=== PATIENT | male | born 1945 | race Caucasian/White ===

== ENCOUNTER 2020-08-20 20:09 | Inpatient (IN) | payer MEDICARE ==
[2020-08-20] MEDS ORDERED: Propofol 1,000 MG/100 ML VIAL IV ONE (20:28)
[2020-08-20] MEDS ORDERED: Fentanyl 100 MCG/2 ML VIAL ONE (20:36)
[2020-08-20] MEDS ORDERED: Acetaminophen 650 MG Suppository ONE (20:51)
[2020-08-20 20:59] LABS: Actual Bicarbonate (HCO3a) 21.4 mEq/L (22-28); Analyzer IN Cardio ER; Base Excess (BEa) -5.3 mEq/L (-2.0 to +3.0); CO2 Tension 46.8 mmHg (35.0-45.0); Calcium, Ionized (arterial) 1.12 mmol/L (1.12-1.30); Carboxyhemoglobin (COHb) 0.3 gm% (0.0-3.0); Hemoglobin (Hb) 12.8 g/dL (14.0-18.0); O2 Tension (PaO2), arterial 297.3 mmHg (> 70.0); Potassium - ABG Lab 4.17 mmol/L (3.70-5.30); pH, Arterial 7.28 (7.35-7.45)
[2020-08-20 21:03] LABS: Puncture Site RBA
[2020-08-20 22:38] LABS: Color Of CSF Supernatant COLORLESS (Colorless); Unspun CSF Color COLORLESS (Colorless)
[2020-08-20 22:39] LABS: Tube # 2
[2020-08-20] MEDS ORDERED: Ventilator Sedation Protocol 1 EACH FS SCH (22:45)
[2020-08-20] MEDS ORDERED: Ampicillin 125 MG/5 ML VIAL SLOW IVP SCH (22:45)
[2020-08-20 22:52] LABS: CSF, Glucose 65 mg/dl (40-70); CSF, Protein 96 mg/dL (15-40)
[2020-08-20] MEDS ORDERED: Propofol BOLUS 1,000 MG/100 ML VIAL IV PRN (23:00)
[2020-08-20] MEDS ORDERED: Fentanyl BOLUS 250 ML IVPB PRN (23:00)
[2020-08-20] MEDS ORDERED: DISCONTINUE PREVIOUS NARCOTIC PAIN MEDICATIONS AND BENZODIAZEPINES FS SCH (23:00)
[2020-08-20 23:08] LABS: CSF Source CSF; Clarity Clear (Clear); Tube # 4
[2020-08-20 23:10] LABS: Cell Count Non Hematic 31 %; Eosinophils 1 %; Lymphocytes 67 %; Segmented Neutrophils 1 %
[2020-08-20 23:11] LABS: CSF Source CSF; Clarity Hazy (Clear); Tube # 1
[2020-08-21] MEDS ORDERED: cefTRIAXone\\ROCEPHIN 2 GM in Sodium Chloride 0.9% 100 ML IVPB SCH (02:00)
[2020-08-21] MEDS: Ampicillin 2 GM in Sodium Chloride 0.9% 100 ML IVPB SCH ×7 (02:19→17:18)
[2020-08-21] MEDS ORDERED: Ampicillin 2 GM VIAL ONE ×2 (02:31→05:44)
[2020-08-21] MEDS ORDERED: cefTRIAXone\\ROCEPHIN 2 GM VIAL ONE (02:32)
[2020-08-21] MEDS ORDERED: Dextrose 50% Abboject 50 ML SYRINGE ONE ×2 (02:33→17:56)
[2020-08-21] MEDS ORDERED: Dextrose 5% in Water 1,000 ML IV SCH (04:00)
[2020-08-21] MEDS ORDERED: Propofol 1,000 MG/100 ML VIAL IV ONE ×2 (04:23→10:41)
[2020-08-21 04:54] LABS: Anion Gap 16 mmol/L (10-20); BUN (Urea Nitrogen) 15 mg/dL (8.4-25.7); Calc. Creatinine Clearance 82 mL/min (70-130); Calcium 7.9 mg/dL (7.8-10.44); Carbon Dioxide 17 mmol/L (23-31); Chloride 108 mmol/L (98-107); Glucose 83 mg/dL (83-110); Potassium 3.8 mmol/L (3.5-5.1); Sodium 137 mmol/L (136-145)
[2020-08-21 05:05] LABS: Band 2 % (5-11); Hemoglobin 12.1 g/dL (14.0-18.0); Hypochromia SLIGHT = 6-15 cells (100X) (0-5/hpf); Lymphocytes 21 % (21-51); MDiff Complete? YES; Mean Corpuscular HGB CONC 33.3 g/dL (32.0-36.0); Mean Corpuscular Hemoglobin 31.4 pg (27.0-31.0); Mean Corpuscular Volume 94.3 fL (78.0-98.0); Mean Platelet Volume 7.3 fL (7.4-10.4); Monocytes 19 % (0-10); Neutrophil 58 % (42-75); Platelet Count 162 thou/uL (130-400); Platelet Morphology Comment Appears Adequate; RBC Distribution Width 12.5 % (11.5-14.5); Red Blood Cell (RBC) Count 3.86 mill/uL (4.70-6.10); White Blood Cell (WBC) Count 11.7 thou/uL (4.8-10.8)
[2020-08-21] MEDS: Dextrose 5 % And 0.9 % NaCl 1,000 ML IV SCH ×3 (05:23→14:25)
[2020-08-21 08:05] LABS: Actual Bicarbonate (HCO3a) 20.1 mEq/L (22-28); Analyzer IN Cardio ER; Base Excess (BEa) -1.8 mEq/L (-2.0 to +3.0); CO2 Tension 26.4 mmHg (35.0-45.0); Calcium, Ionized (arterial) 1.11 mmol/L (1.12-1.30); Carboxyhemoglobin (COHb) 0.3 gm% (0.0-3.0); Hemoglobin (Hb) 12.3 g/dL (14.0-18.0); O2 Tension (PaO2), arterial 87.6 mmHg (> 70.0); Potassium - ABG Lab 3.34 mmol/L (3.70-5.30)
[2020-08-21] MEDS ORDERED: Lorazepam 2 MG/ML VIAL ONE (08:08)
[2020-08-21] MEDS: Lorazepam 2 MG/ML VIAL SLOW IVP PRN ×2 (08:11→12:55)
[2020-08-21 08:12] LABS: Puncture Site RRA
[2020-08-21] MEDS: Enoxaparin Sodium 40 MG/0.4 ML SYRINGE SC SCH (09:41)
[2020-08-21] MEDS ORDERED: levETIRAcetam in NS 500 MG in Premix Bag 1 BAG IVPB SCH (10:45)
[2020-08-21] MEDS: Propofol 1,000 MG/100 ML VIAL IV PRN ×3 (14:06→23:27)
[2020-08-21] MEDS ORDERED: VANCOMYCIN 2 GRAM/400 ML BAG 2 GM in Premix Bag 1 BAG IVPB SCH (15:00)
[2020-08-21 15:59] LABS: SARS-CoV-2 PCR by NAA Not Detected (NotDetected)
[2020-08-21] MEDS ORDERED: traZODone HCl 50 MG TAB ONE (17:56)
[2020-08-21] MEDS: Acetaminophen 650 MG/20.3 ML UDCUP PER TUBE PRN (17:58)
[2020-08-21] MEDS ORDERED: Dextrose 5% in Water 1,000 ML IV PRN (19:30)
[2020-08-21] MEDS ORDERED: Dextrose 50% Abboject 50 ML SYRINGE IVP PRN (19:30)
[2020-08-21] MEDS ORDERED: Fentanyl CADD 0 ML ONE (19:33)
[2020-08-21] MEDS: Sodium Chloride 154 MEQ in Dextrose 10% in Water 1,000 ML IV SCH (20:04)
[2020-08-21] MEDS: levETIRAcetam in NS 500 MG in Premix Bag 1 BAG IVPB SCH (21:12)
[2020-08-21] MEDS ORDERED: Fentanyl CADD 100 ML ONE (23:23)
[2020-08-21] MEDS: Fentanyl CADD 100 ML IV SCH (23:27)
[2020-08-21] MEDS: Piperacillin/Tazobactam 3.375 GM in Sodium Chloride 0.9% 100 ML IVPB SCH (23:38)
[2020-08-22] MEDS: Propofol 1,000 MG/100 ML VIAL IV PRN ×3 (04:16→21:35)
[2020-08-22 04:54] LABS: #Eosinphils 0.3 thou/uL (0.0-0.7); #Lymphocytes 1.3 thou/uL (1.20-3.40); #Monocytes 0.8 thou/uL (0.11-0.59); #Neutrophils 6.6 thou/uL (1.40-6.50); %Basophils 0.5 % (0.0-1.0); %Eosinophils 3.3 % (0.0-10.0); %Lymphocytes 14.5 % (21.0-51.0); %Monocytes 8.9 % (0.0-10.0); %Neutrophils 72.8 % (42.0-75.0); Hemoglobin 12.1 g/dL (14.0-18.0); Mean Corpuscular HGB CONC 33.7 g/dL (32.0-36.0); Mean Corpuscular Hemoglobin 31.8 pg (27.0-31.0); Mean Corpuscular Volume 94.3 fL (78.0-98.0); Mean Platelet Volume 7.9 fL (7.4-10.4); Platelet Count 126 thou/uL (130-400); RBC Distribution Width 12.5 % (11.5-14.5); Red Blood Cell (RBC) Count 3.82 mill/uL (4.70-6.10)
[2020-08-22 05:17] LABS: Anion Gap 10 mmol/L (10-20); BUN (Urea Nitrogen) 12 mg/dL (8.4-25.7); Calc. Creatinine Clearance 69 mL/min (70-130); Calcium 7.6 mg/dL (7.8-10.44); Carbon Dioxide 23 mmol/L (23-31); Chloride 108 mmol/L (98-107); Glucose 151 mg/dL (83-110); Potassium 3.7 mmol/L (3.5-5.1); Sodium 137 mmol/L (136-145)
[2020-08-22] MEDS: Piperacillin/Tazobactam 3.375 GM in Sodium Chloride 0.9% 100 ML IVPB SCH ×3 (05:38→20:01)
[2020-08-22] MEDS: Sodium Chloride 154 MEQ in Dextrose 10% in Water 1,000 ML IV SCH ×2 (06:16→16:08)
[2020-08-22] MEDS: levETIRAcetam in NS 500 MG in Premix Bag 1 BAG IVPB SCH ×2 (08:22→20:35)
[2020-08-22] MEDS: Pantoprazole 40 MG VIAL IVP SCH (08:23)
[2020-08-22] MEDS: Enoxaparin Sodium 40 MG/0.4 ML SYRINGE SC SCH (08:23)
[2020-08-22 13:26] LABS: SARS-CoV-2 PCR by NAA Not Detected (NotDetected)
[2020-08-22] MEDS: Lorazepam 2 MG/ML VIAL SLOW IVP PRN (15:31)
[2020-08-22] MEDS ORDERED: Fentanyl CADD 100 ML ONE (15:40)
[2020-08-22] MEDS: Fentanyl CADD 100 ML IV SCH (15:43)
[2020-08-22] MEDS ORDERED: Amiodarone 150 MG, Admixture Fee 1 EACH in Dextrose 5% in Water 100 ML IVPB SCH (16:00)
[2020-08-22] MEDS ORDERED: Pancrelipase DR 12,000 1 CAP FS PRN (16:00)
[2020-08-22] MEDS ORDERED: Sodium Bicarbonate Tab 325 MG TAB PER TUBE PRN (16:00)
[2020-08-22] MEDS: Amiodarone 450 MG, Admixture Fee 1 EACH in Dextrose 5% in Water 250 ML IVPB SCH (16:08)
[2020-08-22] MEDS: Acetaminophen 650 MG/20.3 ML UDCUP PER TUBE PRN (18:20)
[2020-08-22 20:29] LABS: SARS-CoV-2 IgG Ab Non-Reactive (NonReactive); SARS-CoV-2 IgG Index 0.02 S/CO (< 1.40)
[2020-08-23] MEDS: Amiodarone 450 MG, Admixture Fee 1 EACH in Dextrose 5% in Water 250 ML IVPB SCH ×2 (00:05→21:40)
[2020-08-23] MEDS: Piperacillin/Tazobactam 3.375 GM in Sodium Chloride 0.9% 100 ML IVPB SCH ×5 (00:27→23:29)
[2020-08-23] MEDS: Propofol 1,000 MG/100 ML VIAL IV PRN ×3 (02:25→18:10)
[2020-08-23 03:51] LABS: #Eosinphils 0.2 thou/uL (0.0-0.7); #Monocytes 0.4 thou/uL (0.11-0.59); #Neutrophils 5.4 thou/uL (1.40-6.50); %Basophils 0.2 % (0.0-1.0); %Eosinophils 3.5 % (0.0-10.0); %Lymphocytes 13.7 % (21.0-51.0); %Neutrophils 76.6 % (42.0-75.0); Mean Corpuscular HGB CONC 34.2 g/dL (32.0-36.0); Mean Corpuscular Hemoglobin 32.3 pg (27.0-31.0); Mean Corpuscular Volume 94.4 fL (78.0-98.0); Mean Platelet Volume 7.8 fL (7.4-10.4); Platelet Count 110 thou/uL (130-400); RBC Distribution Width 12.5 % (11.5-14.5); Red Blood Cell (RBC) Count 3.41 mill/uL (4.70-6.10)
[2020-08-23 04:09] LABS: Anion Gap 9 mmol/L (10-20); BUN (Urea Nitrogen) 9 mg/dL (8.4-25.7); Calc. Creatinine Clearance 79 mL/min (70-130); Calcium 7.3 mg/dL (7.8-10.44); Carbon Dioxide 20 mmol/L (23-31); Chloride 107 mmol/L (98-107); Glucose 157 mg/dL (83-110); Potassium 3.1 mmol/L (3.5-5.1); Sodium 133 mmol/L (136-145)
[2020-08-23] MEDS: Sodium Chloride 154 MEQ in Dextrose 10% in Water 1,000 ML IV SCH (04:47)
[2020-08-23] MEDS ORDERED: Potassium Chloride 40 MEQ in Sodium Chloride 0.9% 250 ML 250 ML IVPB SCH (06:45)
[2020-08-23] MEDS: Enoxaparin Sodium 40 MG/0.4 ML SYRINGE SC SCH (08:03)
[2020-08-23] MEDS: Pantoprazole 40 MG VIAL IVP SCH (08:04)
[2020-08-23] MEDS ORDERED: Fentanyl CADD 100 ML ONE (08:52)
[2020-08-23] MEDS: Lorazepam 2 MG/ML VIAL SLOW IVP PRN (10:23)
[2020-08-23] MEDS: levETIRAcetam in NS 500 MG in Premix Bag 1 BAG IVPB SCH ×2 (12:23→20:48)
[2020-08-23] MEDS: Dextrose 5 % And 0.9 % NaCl 1,000 ML IV SCH (17:49)
[2020-08-23] MEDS: Multivitamins, Adult 10 ML, Folic Acid 1 MG, Thiamine HCl 100 MG in Dextrose 5 %-0.45 %... IV SCH (18:36)
[2020-08-24] MEDS ORDERED: Fentanyl CADD 100 ML ONE ×3 (00:48→17:32)
[2020-08-24] MEDS: Fentanyl CADD 100 ML IV SCH (00:53)
[2020-08-24] MEDS: Acetaminophen 650 MG/20.3 ML UDCUP PER TUBE PRN ×2 (01:39→09:30)
[2020-08-24] MEDS: Piperacillin/Tazobactam 3.375 GM in Sodium Chloride 0.9% 100 ML IVPB SCH ×4 (06:09→23:35)
[2020-08-24] MEDS: Propofol 1,000 MG/100 ML VIAL IV PRN ×3 (06:09→23:55)
[2020-08-24] MEDS: Dextrose 5 % And 0.9 % NaCl 1,000 ML IV SCH (06:10)
[2020-08-24 07:20] LABS: Actual Bicarbonate (HCO3a) 21.4 mEq/L (22-28); Base Excess (BEa) -3.7 mEq/L (-2.0 to +3.0); CO2 Tension 38.8 mmHg (35.0-45.0); Calcium, Ionized (arterial) 1.16 mmol/L (1.12-1.30); Carboxyhemoglobin (COHb) 0.3 gm% (0.0-3.0); Hemoglobin (Hb) 11.5 g/dL (14.0-18.0); O2 Tension (PaO2), arterial 72.1 mmHg (> 70.0); Potassium - ABG Lab 3.69 mmol/L (3.70-5.30); pH, Arterial 7.36 (7.35-7.45)
[2020-08-24 07:24] LABS: #Eosinphils 0.2 thou/uL (0.0-0.7); #Lymphocytes 1.1 thou/uL (1.20-3.40); #Monocytes 0.9 thou/uL (0.11-0.59); %Basophils 0.5 % (0.0-1.0); %Lymphocytes 12.8 % (21.0-51.0); %Monocytes 10.8 % (0.0-10.0); %Neutrophils 72.9 % (42.0-75.0); Hemoglobin 11.5 g/dL (14.0-18.0); Mean Corpuscular HGB CONC 33.6 g/dL (32.0-36.0); Mean Corpuscular Hemoglobin 31.6 pg (27.0-31.0); Mean Corpuscular Volume 93.9 fL (78.0-98.0); Mean Platelet Volume 7.7 fL (7.4-10.4); Platelet Count 139 thou/uL (130-400); RBC Distribution Width 12.5 % (11.5-14.5); Red Blood Cell (RBC) Count 3.63 mill/uL (4.70-6.10); White Blood Cell (WBC) Count 8.2 thou/uL (4.8-10.8)
[2020-08-24 07:32] LABS: Puncture Site RRA
[2020-08-24 08:01] LABS: Anion Gap 14 mmol/L (10-20); BUN (Urea Nitrogen) 11 mg/dL (8.4-25.7); Calc. Creatinine Clearance 88 mL/min (70-130); Calcium 8.3 mg/dL (7.8-10.44); Carbon Dioxide 17 mmol/L (23-31); Chloride 110 mmol/L (98-107); Glucose 147 mg/dL (83-110); Potassium 5.2 mmol/L (3.5-5.1); Sodium 136 mmol/L (136-145)
[2020-08-24] MEDS: Pantoprazole 40 MG GRANULES PACKET PER TUBE SCH (09:30)
[2020-08-24] MEDS: levETIRAcetam in NS 500 MG in Premix Bag 1 BAG IVPB SCH ×2 (09:30→20:49)
[2020-08-24] MEDS: Enoxaparin Sodium 40 MG/0.4 ML SYRINGE SC SCH (09:30)
[2020-08-24] MEDS ORDERED: PARoxetine 20 MG TAB ONE (14:37)
[2020-08-24] MEDS: Multivitamins, Adult 10 ML, Folic Acid 1 MG, Thiamine HCl 100 MG in Dextrose 5 %-0.45 %... IV SCH (17:27)
[2020-08-24] MEDS: Lorazepam 2 MG/ML VIAL SLOW IVP PRN (17:53)
[2020-08-24] MEDS ORDERED: Piperacillin/Tazobactam 3.375 GM VIAL ONE (23:40)
[2020-08-25] MEDS: Amiodarone 450 MG, Admixture Fee 1 EACH in Dextrose 5% in Water 250 ML IVPB SCH ×2 (04:17→19:33)
[2020-08-25] MEDS: Furosemide 40 MG/4 ML VIAL SLOW IVP SCH ×2 (05:03→14:15)
[2020-08-25] MEDS: Piperacillin/Tazobactam 3.375 GM in Sodium Chloride 0.9% 100 ML IVPB SCH ×4 (05:03→23:28)
[2020-08-25 05:10] LABS: #Basophils 0.1 thou/uL (0.0-0.2); #Eosinphils 0.2 thou/uL (0.0-0.7); #Lymphocytes 0.9 thou/uL (1.20-3.40); #Monocytes 0.5 thou/uL (0.11-0.59); #Neutrophils 3.9 thou/uL (1.40-6.50); %Basophils 1.3 % (0.0-1.0); %Eosinophils 4.1 % (0.0-10.0); %Lymphocytes 15.5 % (21.0-51.0); %Monocytes 8.2 % (0.0-10.0); %Neutrophils 70.9 % (42.0-75.0); Hemoglobin 10.6 g/dL (14.0-18.0); Mean Corpuscular HGB CONC 33.4 g/dL (32.0-36.0); Mean Corpuscular Hemoglobin 31.6 pg (27.0-31.0); Mean Corpuscular Volume 94.5 fL (78.0-98.0); Mean Platelet Volume 7.7 fL (7.4-10.4); Platelet Count 158 thou/uL (130-400); RBC Distribution Width 12.6 % (11.5-14.5); Red Blood Cell (RBC) Count 3.37 mill/uL (4.70-6.10); White Blood Cell (WBC) Count 5.6 thou/uL (4.8-10.8)
[2020-08-25 05:31] LABS: Anion Gap 9 mmol/L (10-20); BUN (Urea Nitrogen) 8 mg/dL (8.4-25.7); Calc. Creatinine Clearance 100 mL/min (70-130); Calcium 8.1 mg/dL (7.8-10.44); Carbon Dioxide 22 mmol/L (23-31); Chloride 110 mmol/L (98-107); Glucose 123 mg/dL (83-110); Potassium 3.4 mmol/L (3.5-5.1); Sodium 138 mmol/L (136-145)
[2020-08-25] MEDS ORDERED: Electrolyte Replacement Protocol 1 EACH FS PRN (07:59)
[2020-08-25 08:01] LABS: Actual Bicarbonate (HCO3a) 24.9 mEq/L (22-28); Base Excess (BEa) 1.3 mEq/L (-2.0 to +3.0); CO2 Tension 36.1 mmHg (35.0-45.0); Carboxyhemoglobin (COHb) 0.2 gm% (0.0-3.0); Hemoglobin (Hb) 11.5 g/dL (14.0-18.0); O2 Tension (PaO2), arterial 64.3 mmHg (> 70.0); pH, Arterial 7.46 (7.35-7.45)
[2020-08-25] MEDS ORDERED: Potassium Chloride 40 MEQ in Sodium Chloride 0.9% 250 ML 250 ML IVPB SCH (08:15)
[2020-08-25 08:31] LABS: Puncture Site RRA
[2020-08-25 08:32] LABS: ALV-art Gradient 104.475 mmHg (0-20)
[2020-08-25] MEDS: Pantoprazole 40 MG GRANULES PACKET PER TUBE SCH (08:46)
[2020-08-25] MEDS: Enoxaparin Sodium 40 MG/0.4 ML SYRINGE SC SCH (08:46)
[2020-08-25] MEDS: Lorazepam 2 MG/ML VIAL SLOW IVP PRN ×3 (08:58→22:52)
[2020-08-25] MEDS: Propofol 1,000 MG/100 ML VIAL IV PRN ×2 (09:05→20:34)
[2020-08-25] MEDS ORDERED: Fentanyl CADD 100 ML ONE (10:53)
[2020-08-25] MEDS: levETIRAcetam in NS 500 MG in Premix Bag 1 BAG IVPB SCH ×2 (11:45→20:34)
[2020-08-25 15:44] LABS: Potassium 3.8 mmol/L (3.5-5.1)
[2020-08-25] MEDS: Multivitamins, Adult 10 ML, Folic Acid 1 MG, Thiamine HCl 100 MG in Dextrose 5 %-0.45 %... IV SCH (17:13)
[2020-08-25] MEDS: Potassium Bicarbonate/Cit Ac 20 MEQ TAB PO SCH (20:35)
[2020-08-26 04:21] LABS: #Basophils 0.1 thou/uL (0.0-0.2); #Eosinphils 0.2 thou/uL (0.0-0.7); #Lymphocytes 1.2 thou/uL (1.20-3.40); #Monocytes 0.7 thou/uL (0.11-0.59); #Neutrophils 5.2 thou/uL (1.40-6.50); %Basophils 1.1 % (0.0-1.0); %Lymphocytes 15.7 % (21.0-51.0); %Monocytes 9.6 % (0.0-10.0); %Neutrophils 70.7 % (42.0-75.0); Hemoglobin 10.3 g/dL (14.0-18.0); Mean Corpuscular HGB CONC 34.5 g/dL (32.0-36.0); Mean Corpuscular Hemoglobin 32.3 pg (27.0-31.0); Mean Corpuscular Volume 93.6 fL (78.0-98.0); Mean Platelet Volume 7.2 fL (7.4-10.4); Platelet Count 170 thou/uL (130-400); RBC Distribution Width 12.4 % (11.5-14.5); White Blood Cell (WBC) Count 7.4 thou/uL (4.8-10.8)
[2020-08-26 04:38] LABS: Anion Gap 12 mmol/L (10-20); BUN (Urea Nitrogen) 11 mg/dL (8.4-25.7); Calc. Creatinine Clearance 94 mL/min (70-130); Calcium 8.3 mg/dL (7.8-10.44); Carbon Dioxide 25 mmol/L (23-31); Chloride 103 mmol/L (98-107); Glucose 130 mg/dL (83-110); Potassium 3.3 mmol/L (3.5-5.1); Sodium 137 mmol/L (136-145)
[2020-08-26] MEDS: Furosemide 40 MG/4 ML VIAL SLOW IVP SCH ×2 (05:20→13:12)
[2020-08-26] MEDS: Piperacillin/Tazobactam 3.375 GM in Sodium Chloride 0.9% 100 ML IVPB SCH ×3 (05:20→17:02)
[2020-08-26] MEDS ORDERED: Potassium Chloride 40 MEQ in Sodium Chloride 0.9% 250 ML 250 ML IVPB SCH (06:00)
[2020-08-26 07:40] LABS: Actual Bicarbonate (HCO3a) 28.6 mEq/L (22-28); CO2 Tension 38.6 mmHg (35.0-45.0); Calcium, Ionized (arterial) 1.17 mmol/L (1.12-1.30); Carboxyhemoglobin (COHb) 0.4 gm% (0.0-3.0); Hemoglobin (Hb) 11.9 g/dL (14.0-18.0); pH, Arterial 7.49 (7.35-7.45)
[2020-08-26] MEDS ORDERED: Rocuronium Bromide 50 MG/5 ML VIAL IVP SCH (08:00)
[2020-08-26 08:02] LABS: Puncture Site RRA
[2020-08-26] MEDS ORDERED: Fentanyl CADD 100 ML ONE ×2 (08:31→23:57)
[2020-08-26] MEDS: levETIRAcetam in NS 500 MG in Premix Bag 1 BAG IVPB SCH ×2 (08:58→20:08)
[2020-08-26] MEDS: Enoxaparin Sodium 40 MG/0.4 ML SYRINGE SC SCH (08:58)
[2020-08-26] MEDS: Potassium Bicarbonate/Cit Ac 20 MEQ TAB PO SCH ×2 (08:58→20:09)
[2020-08-26] MEDS: Pantoprazole 40 MG GRANULES PACKET PER TUBE SCH (08:58)
[2020-08-26] MEDS: Propofol 1,000 MG/100 ML VIAL IV PRN ×2 (11:03→21:47)
[2020-08-26] MEDS: Lorazepam 2 MG/ML VIAL SLOW IVP PRN (11:04)
[2020-08-26] MEDS ORDERED: Magnevist 469MG/ML 20 ML VIAL ONE (14:47)
[2020-08-26] MEDS ORDERED: Amlodipine 10 MG TAB PO SCH (16:15)
[2020-08-26 16:57] LABS: Anion Gap 13 mmol/L (10-20); BUN (Urea Nitrogen) 14 mg/dL (8.4-25.7); Calc. Creatinine Clearance 79 mL/min (70-130); Calcium 9.3 mg/dL (7.8-10.44); Carbon Dioxide 31 mmol/L (23-31); Chloride 98 mmol/L (98-107); Glucose 112 mg/dL (83-110); Potassium 3.8 mmol/L (3.5-5.1); Sodium 138 mmol/L (136-145)
[2020-08-27] MEDS: Piperacillin/Tazobactam 3.375 GM in Sodium Chloride 0.9% 100 ML IVPB SCH ×5 (00:12→23:14)
[2020-08-27] MEDS: Propofol 1,000 MG/100 ML VIAL IV PRN ×3 (04:02→21:02)
[2020-08-27 04:38] LABS: #Basophils 0.1 thou/uL (0.0-0.2); #Eosinphils 0.2 thou/uL (0.0-0.7); #Lymphocytes 1.6 thou/uL (1.20-3.40); #Monocytes 0.8 thou/uL (0.11-0.59); #Neutrophils 4.8 thou/uL (1.40-6.50); %Basophils 1.1 % (0.0-1.0); %Eosinophils 3.1 % (0.0-10.0); %Lymphocytes 21.1 % (21.0-51.0); %Monocytes 10.1 % (0.0-10.0); %Neutrophils 64.5 % (42.0-75.0); Hemoglobin 10.9 g/dL (14.0-18.0); Mean Corpuscular HGB CONC 33.5 g/dL (32.0-36.0); Mean Corpuscular Hemoglobin 31.2 pg (27.0-31.0); Mean Corpuscular Volume 93.2 fL (78.0-98.0); Mean Platelet Volume 7.3 fL (7.4-10.4); Platelet Count 239 thou/uL (130-400); RBC Distribution Width 12.4 % (11.5-14.5); White Blood Cell (WBC) Count 7.4 thou/uL (4.8-10.8)
[2020-08-27 05:07] LABS: Anion Gap 10 mmol/L (10-20); BUN (Urea Nitrogen) 17 mg/dL (8.4-25.7); Calc. Creatinine Clearance 85 mL/min (70-130); Carbon Dioxide 33 mmol/L (23-31); Chloride 98 mmol/L (98-107); Glucose 110 mg/dL (83-110); Potassium 3.4 mmol/L (3.5-5.1); Sodium 138 mmol/L (136-145)
[2020-08-27] MEDS: Amiodarone 450 MG, Admixture Fee 1 EACH in Dextrose 5% in Water 250 ML IVPB SCH ×2 (05:08→19:58)
[2020-08-27 05:26] LABS: Free T4 (Free Thyroxine) 0.86 ng/dL (0.70-1.48); Thyroid Stimulating Hormone 5.7278 uIU/mL (0.35-4.94)
[2020-08-27] MEDS: Furosemide 40 MG/4 ML VIAL SLOW IVP SCH (05:28)
[2020-08-27] MEDS ORDERED: Potassium Chloride 40 MEQ in Sodium Chloride 0.9% 250 ML 250 ML IVPB SCH (05:45)
[2020-08-27 08:43] LABS: Actual Bicarbonate (HCO3a) 32.6 mEq/L (22-28); Base Excess (BEa) 9.1 mEq/L (-2.0 to +3.0); CO2 Tension 40.3 mmHg (35.0-45.0); Calcium, Ionized (arterial) 1.17 mmol/L (1.12-1.30); Hemoglobin (Hb) 12.7 g/dL (14.0-18.0); O2 Tension (PaO2), arterial 82.1 mmHg (> 70.0); Potassium - ABG Lab 3.69 mmol/L (3.70-5.30); pH, Arterial 7.53 (7.35-7.45)
[2020-08-27 08:44] LABS: Puncture Site LRA
[2020-08-27 08:45] LABS: ALV-art Gradient 81.425 mmHg (0-20)
[2020-08-27] MEDS ORDERED: Furosemide 40 MG TAB PO SCH (09:00)
[2020-08-27] MEDS: Enoxaparin Sodium 40 MG/0.4 ML SYRINGE SC SCH (09:14)
[2020-08-27] MEDS: Amlodipine 10 MG TAB PO SCH (09:15)
[2020-08-27] MEDS: Potassium Bicarbonate/Cit Ac 20 MEQ TAB PO SCH ×2 (09:15→20:05)
[2020-08-27] MEDS: Pantoprazole 40 MG GRANULES PACKET PER TUBE SCH (09:15)
[2020-08-27] MEDS: levETIRAcetam in NS 500 MG in Premix Bag 1 BAG IVPB SCH ×2 (09:16→21:03)
[2020-08-27] MEDS: Lorazepam 2 MG/ML VIAL SLOW IVP PRN ×4 (09:16→22:02)
[2020-08-27] MEDS: Morphine 2 MG/ML VIAL SLOW IVP PRN ×3 (11:23→20:04)
[2020-08-27 15:37] LABS: Potassium 4.6 mmol/L (3.5-5.1)
[2020-08-27 16:45] LABS: Anion Gap 23 mmol/L (10-20); BUN (Urea Nitrogen) 21 mg/dL (8.4-25.7); Calc. Creatinine Clearance 71 mL/min (70-130); Calcium 9.7 mg/dL (7.8-10.44); Carbon Dioxide 22 mmol/L (23-31); Chloride 99 mmol/L (98-107); Glucose 124 mg/dL (83-110); Potassium 4.6 mmol/L (3.5-5.1); Sodium 139 mmol/L (136-145)
[2020-08-28] MEDS: Acetaminophen 650 MG/20.3 ML UDCUP PER TUBE PRN ×2 (01:38→18:13)
[2020-08-28] MEDS: Propofol 1,000 MG/100 ML VIAL IV PRN ×4 (02:57→22:44)
[2020-08-28] MEDS: Lorazepam 2 MG/ML VIAL SLOW IVP PRN (03:21)
[2020-08-28 03:48] LABS: Anion Gap 14 mmol/L (10-20); BUN (Urea Nitrogen) 22 mg/dL (8.4-25.7); Calc. Creatinine Clearance 72 mL/min (70-130); Calcium 9.3 mg/dL (7.8-10.44); Carbon Dioxide 28 mmol/L (23-31); Chloride 99 mmol/L (98-107); Glucose 113 mg/dL (83-110); Potassium 3.7 mmol/L (3.5-5.1); Sodium 137 mmol/L (136-145)
[2020-08-28 04:54] LABS: #Basophils 0.1 thou/uL (0.0-0.2); #Eosinphils 0.5 thou/uL (0.0-0.7); #Lymphocytes 1.7 thou/uL (1.20-3.40); #Monocytes 0.9 thou/uL (0.11-0.59); #Neutrophils 5.8 thou/uL (1.40-6.50); %Eosinophils 5.3 % (0.0-10.0); %Lymphocytes 18.7 % (21.0-51.0); %Monocytes 9.9 % (0.0-10.0); %Neutrophils 65.3 % (42.0-75.0); Mean Corpuscular HGB CONC 33.5 g/dL (32.0-36.0); Mean Corpuscular Hemoglobin 31.1 pg (27.0-31.0); Mean Corpuscular Volume 92.8 fL (78.0-98.0); Mean Platelet Volume 7.2 fL (7.4-10.4); Platelet Count 296 thou/uL (130-400); RBC Distribution Width 12.5 % (11.5-14.5); Red Blood Cell (RBC) Count 3.84 mill/uL (4.70-6.10); White Blood Cell (WBC) Count 8.8 thou/uL (4.8-10.8)
[2020-08-28] MEDS: Piperacillin/Tazobactam 3.375 GM in Sodium Chloride 0.9% 100 ML IVPB SCH ×4 (05:09→22:44)
[2020-08-28] MEDS: Pantoprazole 40 MG GRANULES PACKET PER TUBE SCH (08:59)
[2020-08-28] MEDS: Potassium Bicarbonate/Cit Ac 20 MEQ TAB PO SCH ×2 (08:59→19:41)
[2020-08-28] MEDS: levETIRAcetam in NS 500 MG in Premix Bag 1 BAG IVPB SCH ×2 (08:59→20:23)
[2020-08-28] MEDS: Amlodipine 10 MG TAB PO SCH (09:00)
[2020-08-28] MEDS: Enoxaparin Sodium 40 MG/0.4 ML SYRINGE SC SCH (09:00)
[2020-08-28] MEDS: fentaNYL 50 mcg/hour Patch TD SCH (09:49)
[2020-08-29] MEDS: Acetaminophen 650 MG/20.3 ML UDCUP PER TUBE PRN ×2 (02:27→16:03)
[2020-08-29 04:11] LABS: #Basophils 0.1 thou/uL (0.0-0.2); #Eosinphils 0.3 thou/uL (0.0-0.7); #Lymphocytes 1.4 thou/uL (1.20-3.40); #Monocytes 0.7 thou/uL (0.11-0.59); #Neutrophils 5.4 thou/uL (1.40-6.50); %Basophils 0.7 % (0.0-1.0); %Eosinophils 4.2 % (0.0-10.0); %Lymphocytes 18.2 % (21.0-51.0); %Monocytes 8.7 % (0.0-10.0); %Neutrophils 68.1 % (42.0-75.0); Hemoglobin 12.1 g/dL (14.0-18.0); Mean Corpuscular HGB CONC 34.4 g/dL (32.0-36.0); Mean Corpuscular Volume 92.9 fL (78.0-98.0); Platelet Count 321 thou/uL (130-400); RBC Distribution Width 12.4 % (11.5-14.5); Red Blood Cell (RBC) Count 3.78 mill/uL (4.70-6.10); White Blood Cell (WBC) Count 7.9 thou/uL (4.8-10.8)
[2020-08-29] MEDS: Propofol 1,000 MG/100 ML VIAL IV PRN ×2 (04:12→09:08)
[2020-08-29] MEDS: Piperacillin/Tazobactam 3.375 GM in Sodium Chloride 0.9% 100 ML IVPB SCH ×4 (04:29→23:16)
[2020-08-29 04:40] LABS: Anion Gap 13 mmol/L (10-20); BUN (Urea Nitrogen) 21 mg/dL (8.4-25.7); Calc. Creatinine Clearance 72 mL/min (70-130); Calcium 9.1 mg/dL (7.8-10.44); Carbon Dioxide 25 mmol/L (23-31); Chloride 103 mmol/L (98-107); Glucose 110 mg/dL (83-110); Potassium 3.9 mmol/L (3.5-5.1); Sodium 137 mmol/L (136-145)
[2020-08-29] MEDS: Potassium Bicarbonate/Cit Ac 20 MEQ TAB PO SCH ×2 (09:04→20:15)
[2020-08-29] MEDS: Pantoprazole 40 MG GRANULES PACKET PER TUBE SCH (09:04)
[2020-08-29] MEDS: Enoxaparin Sodium 40 MG/0.4 ML SYRINGE SC SCH (09:05)
[2020-08-29] MEDS: levETIRAcetam in NS 500 MG in Premix Bag 1 BAG IVPB SCH ×2 (09:08→20:14)
[2020-08-29] MEDS: Amlodipine 10 MG TAB PO SCH (09:34)
[2020-08-29 11:57] LABS: Actual Bicarbonate (HCO3a) 26.9 mEq/L (22-28); Base Excess (BEa) 2.8 mEq/L (-2.0 to +3.0); CO2 Tension 39.6 mmHg (35.0-45.0); Calcium, Ionized (arterial) 1.22 mmol/L (1.12-1.30); Carboxyhemoglobin (COHb) 0.2 gm% (0.0-3.0); Hemoglobin (Hb) 13.5 g/dL (14.0-18.0); O2 Tension (PaO2), arterial 80.7 mmHg (> 70.0); Potassium - ABG Lab 4.39 mmol/L (3.70-5.30); pH, Arterial 7.45 (7.35-7.45)
[2020-08-29 11:58] LABS: Puncture Site RRA
[2020-08-29] MEDS ORDERED: Sterile Water 10 ML VIAL FS PRN (19:00)
[2020-08-29] MEDS ORDERED: Ziprasidone 20 MG VIAL IM SCH (19:00)
[2020-08-29] MEDS: Metoprolol Tartrate 25 MG TAB PO SCH (20:15)
[2020-08-29] MEDS: Lorazepam 2 MG/ML VIAL SLOW IVP PRN (22:17)
[2020-08-29] MEDS: Morphine 2 MG/ML VIAL SLOW IVP PRN (22:17)
[2020-08-30] MEDS: Lorazepam 2 MG/ML VIAL SLOW IVP PRN ×3 (00:46→04:59)
[2020-08-30] MEDS: Morphine 2 MG/ML VIAL SLOW IVP PRN ×2 (01:33→04:59)
[2020-08-30 03:42] LABS: #Basophils 0.1 thou/uL (0.0-0.2); #Eosinphils 0.3 thou/uL (0.0-0.7); #Lymphocytes 1.5 thou/uL (1.20-3.40); #Monocytes 0.8 thou/uL (0.11-0.59); #Neutrophils 5.9 thou/uL (1.40-6.50); %Basophils 0.7 % (0.0-1.0); %Eosinophils 3.4 % (0.0-10.0); %Lymphocytes 17.5 % (21.0-51.0); %Monocytes 9.1 % (0.0-10.0); %Neutrophils 69.4 % (42.0-75.0); Anion Gap 15 mmol/L (10-20); BUN (Urea Nitrogen) 23 mg/dL (8.4-25.7); Calc. Creatinine Clearance 71 mL/min (70-130); Calcium 9.6 mg/dL (7.8-10.44); Carbon Dioxide 26 mmol/L (23-31); Chloride 104 mmol/L (98-107); Glucose 112 mg/dL (83-110); Hemoglobin 13.2 g/dL (14.0-18.0); Mean Corpuscular HGB CONC 34.7 g/dL (32.0-36.0); Mean Corpuscular Hemoglobin 32.9 pg (27.0-31.0); Platelet Count 342 thou/uL (130-400); Potassium 4.1 mmol/L (3.5-5.1); RBC Distribution Width 12.5 % (11.5-14.5); Sodium 141 mmol/L (136-145); White Blood Cell (WBC) Count 8.5 thou/uL (4.8-10.8)
[2020-08-30] MEDS: Piperacillin/Tazobactam 3.375 GM in Sodium Chloride 0.9% 100 ML IVPB SCH ×3 (05:00→18:38)
[2020-08-30] MEDS: Enoxaparin Sodium 40 MG/0.4 ML SYRINGE SC SCH (08:14)
[2020-08-30] MEDS: Potassium Bicarbonate/Cit Ac 20 MEQ TAB PO SCH ×2 (08:16→21:18)
[2020-08-30] MEDS: Amlodipine 10 MG TAB PO SCH (08:17)
[2020-08-30] MEDS: Metoprolol Tartrate 25 MG TAB PO SCH ×2 (08:18→21:18)
[2020-08-30] MEDS: levETIRAcetam in NS 500 MG in Premix Bag 1 BAG IVPB SCH ×2 (08:18→21:17)
[2020-08-30] MEDS: Pantoprazole 40 MG GRANULES PACKET PER TUBE SCH (08:18)
[2020-08-30] MEDS ORDERED: Ziprasidone 20 MG VIAL IM SCH (09:00)
[2020-08-30] MEDS: Lidocaine 5% Patch TD SCH (11:40)
[2020-08-30] MEDS: Dextrose 5 %-0.45 % NaCl 1,000 ML IV SCH (14:36)
[2020-08-30] MEDS: Enoxaparin Sodium 100 MG/ML SYRINGE SC SCH (21:17)
[2020-08-30] MEDS: Transdermal Patch Removal TOP SCH (21:18)
[2020-08-30] MEDS: Ziprasidone 20 MG VIAL IM PRN (21:18)
[2020-08-31] MEDS: Piperacillin/Tazobactam 3.375 GM in Sodium Chloride 0.9% 100 ML IVPB SCH ×2 (00:48→06:07)
[2020-08-31] MEDS ORDERED: Lorazepam 2 MG/ML VIAL SLOW IVP SCH ×2 (01:00→03:15)
[2020-08-31 03:58] LABS: #Basophils 0.1 thou/uL (0.0-0.2); #Eosinphils 0.2 thou/uL (0.0-0.7); #Lymphocytes 1.6 thou/uL (1.20-3.40); #Monocytes 0.8 thou/uL (0.11-0.59); #Neutrophils 8.6 thou/uL (1.40-6.50); %Basophils 0.6 % (0.0-1.0); %Eosinophils 1.9 % (0.0-10.0); %Lymphocytes 14.2 % (21.0-51.0); %Monocytes 7.2 % (0.0-10.0); %Neutrophils 76.2 % (42.0-75.0); Hemoglobin 13.3 g/dL (14.0-18.0); Mean Corpuscular HGB CONC 33.2 g/dL (32.0-36.0); Mean Corpuscular Hemoglobin 31.1 pg (27.0-31.0); Mean Corpuscular Volume 93.9 fL (78.0-98.0); Mean Platelet Volume 6.8 fL (7.4-10.4); Platelet Count 414 thou/uL (130-400); RBC Distribution Width 12.5 % (11.5-14.5); Red Blood Cell (RBC) Count 4.28 mill/uL (4.70-6.10); White Blood Cell (WBC) Count 11.3 thou/uL (4.8-10.8)
[2020-08-31 04:24] LABS: Anion Gap 16 mmol/L (10-20); BUN (Urea Nitrogen) 26 mg/dL (8.4-25.7); Calc. Creatinine Clearance 68 mL/min (70-130); Calcium 9.9 mg/dL (7.8-10.44); Carbon Dioxide 24 mmol/L (23-31); Chloride 103 mmol/L (98-107); Glucose 125 mg/dL (83-110); Potassium 4.2 mmol/L (3.5-5.1); Sodium 139 mmol/L (136-145)
[2020-08-31] MEDS: Amlodipine 10 MG TAB PO SCH (07:47)
[2020-08-31] MEDS: Enoxaparin Sodium 100 MG/ML SYRINGE SC SCH (07:47)
[2020-08-31] MEDS: Metoprolol Tartrate 25 MG TAB PO SCH ×2 (07:47→20:06)
[2020-08-31] MEDS: Potassium Bicarbonate/Cit Ac 20 MEQ TAB PO SCH ×2 (07:48→20:06)
[2020-08-31] MEDS: Pantoprazole 40 MG GRANULES PACKET PER TUBE SCH (07:48)
[2020-08-31] MEDS: levETIRAcetam in NS 500 MG in Premix Bag 1 BAG IVPB SCH ×2 (07:48→20:07)
[2020-08-31] MEDS: Lorazepam 2 MG/ML VIAL SLOW IVP PRN (07:49)
[2020-08-31] MEDS: Morphine 2 MG/ML VIAL SLOW IVP PRN (07:49)
[2020-08-31] MEDS: Enoxaparin Sodium 40 MG/0.4 ML SYRINGE SC SCH (11:42)
[2020-08-31] MEDS: fentaNYL 50 mcg/hour Patch TD SCH (12:00)
[2020-08-31] MEDS: Dextrose 5 %-0.45 % NaCl 1,000 ML IV SCH (12:00)
[2020-08-31] MEDS: Transdermal Patch Removal TOP SCH (20:30)
[2020-08-31] MEDS: Ziprasidone 20 MG VIAL IM PRN (22:44)
[2020-09-01 04:29] LABS: ALT (SGPT) 33 U/L (8-55); AST (SGOT) 40 U/L (5-34); Alkaline Phosphatase 53 U/L (40-110); Anion Gap 16 mmol/L (10-20); BUN (Urea Nitrogen) 28 mg/dL (8.4-25.7); Bilirubin, Total 0.4 mg/dL (0.2-1.2); Calc. Creatinine Clearance 72 mL/min (70-130); Calcium 9.9 mg/dL (7.8-10.44); Carbon Dioxide 24 mmol/L (23-31); Chloride 102 mmol/L (98-107); Globulin 3.8 g/dL (2.4-3.5); Glucose 129 mg/dL (83-110); Potassium 4.5 mmol/L (3.5-5.1); Protein, Total 7.8 g/dL (5.8-8.1); Sodium 137 mmol/L (136-145)
[2020-09-01 04:31] LABS: #Basophils 0.1 thou/uL (0.0-0.2); #Eosinphils 0.3 thou/uL (0.0-0.7); #Monocytes 0.8 thou/uL (0.11-0.59); #Neutrophils 6.9 thou/uL (1.40-6.50); %Basophils 0.8 % (0.0-1.0); %Eosinophils 3.3 % (0.0-10.0); %Lymphocytes 19.3 % (21.0-51.0); %Monocytes 7.7 % (0.0-10.0); %Neutrophils 68.8 % (42.0-75.0); Mean Corpuscular HGB CONC 34.2 g/dL (32.0-36.0); Mean Corpuscular Hemoglobin 32.8 pg (27.0-31.0); Mean Corpuscular Volume 96.1 fL (78.0-98.0); Platelet Count 409 thou/uL (130-400); RBC Distribution Width 12.4 % (11.5-14.5); Red Blood Cell (RBC) Count 4.27 mill/uL (4.70-6.10); White Blood Cell (WBC) Count 10.1 thou/uL (4.8-10.8)
[2020-09-01] MEDS: Enoxaparin Sodium 40 MG/0.4 ML SYRINGE SC SCH (08:38)
[2020-09-01] MEDS: Amlodipine 10 MG TAB PO SCH (08:38)
[2020-09-01] MEDS: levETIRAcetam in NS 500 MG in Premix Bag 1 BAG IVPB SCH ×2 (08:38→20:40)
[2020-09-01] MEDS: Pantoprazole 40 MG GRANULES PACKET PER TUBE SCH (08:38)
[2020-09-01] MEDS: Potassium Bicarbonate/Cit Ac 20 MEQ TAB PO SCH ×2 (08:38→20:40)
[2020-09-01] MEDS: Metoprolol Tartrate 25 MG TAB PO SCH ×2 (08:38→20:40)
[2020-09-01] MEDS: Dextrose 5 %-0.45 % NaCl 1,000 ML IV SCH (08:39)
[2020-09-01] MEDS ORDERED: Artificial Tear Sol 15 ML BOT EA EYE PRN (12:33)
[2020-09-01] MEDS ORDERED: Chloraseptic Spray 180 ml Bottle PO PRN (13:06)
[2020-09-01] MEDS: Transdermal Patch Removal TOP SCH (20:42)
[2020-09-02] MEDS: Morphine 2 MG/ML VIAL SLOW IVP PRN (00:21)
[2020-09-02] MEDS: Dextrose 5 %-0.45 % NaCl 1,000 ML IV SCH (02:20)
[2020-09-02] MEDS: levETIRAcetam in NS 500 MG in Premix Bag 1 BAG IVPB SCH ×2 (08:58→20:20)
[2020-09-02] MEDS: Acetaminophen 650 MG/20.3 ML UDCUP PER TUBE PRN (08:59)
[2020-09-02] MEDS: Potassium Bicarbonate/Cit Ac 20 MEQ TAB PO SCH ×2 (09:00→20:20)
[2020-09-02] MEDS: Pantoprazole 40 MG GRANULES PACKET PER TUBE SCH (09:01)
[2020-09-02] MEDS: Enoxaparin Sodium 40 MG/0.4 ML SYRINGE SC SCH (09:01)
[2020-09-02] MEDS: Metoprolol Tartrate 25 MG TAB PO SCH ×2 (09:01→20:27)
[2020-09-02] MEDS: Amlodipine 10 MG TAB PO SCH (09:01)
[2020-09-02] MEDS: Losartan 25 MG TAB PO SCH (20:20)
[2020-09-02] MEDS: Transdermal Patch Removal TOP SCH (21:32)
[2020-09-02] MEDS: Ziprasidone 20 MG VIAL IM PRN (23:11)
[2020-09-03] MEDS: Dextrose 5 %-0.45 % NaCl 1,000 ML IV SCH ×2 (01:09→21:24)
[2020-09-03] MEDS: Morphine 2 MG/ML VIAL SLOW IVP PRN (02:36)
[2020-09-03 05:13] LABS: #Basophils 0.1 thou/uL (0.0-0.2); #Eosinphils 0.3 thou/uL (0.0-0.7); #Monocytes 0.9 thou/uL (0.11-0.59); #Neutrophils 7.3 thou/uL (1.40-6.50); %Basophils 0.8 % (0.0-1.0); %Eosinophils 2.8 % (0.0-10.0); %Monocytes 8.3 % (0.0-10.0); %Neutrophils 69.1 % (42.0-75.0); Hemoglobin 13.5 g/dL (14.0-18.0); Mean Corpuscular Volume 96.9 fL (78.0-98.0); Mean Platelet Volume 6.9 fL (7.4-10.4); Platelet Count 483 thou/uL (130-400); RBC Distribution Width 12.2 % (11.5-14.5); Red Blood Cell (RBC) Count 4.22 mill/uL (4.70-6.10); White Blood Cell (WBC) Count 10.6 thou/uL (4.8-10.8)
[2020-09-03 05:33] LABS: Anion Gap 14 mmol/L (10-20); BUN (Urea Nitrogen) 24 mg/dL (8.4-25.7); Calc. Creatinine Clearance 77 mL/min (70-130); Carbon Dioxide 26 mmol/L (23-31); Chloride 100 mmol/L (98-107); Glucose 151 mg/dL (83-110); Potassium 4.5 mmol/L (3.5-5.1); Sodium 135 mmol/L (136-145)
[2020-09-03] MEDS: Enoxaparin Sodium 40 MG/0.4 ML SYRINGE SC SCH (08:32)
[2020-09-03] MEDS: Amlodipine 10 MG TAB PO SCH (08:32)
[2020-09-03] MEDS: Metoprolol Tartrate 25 MG TAB PO SCH ×2 (08:34→21:25)
[2020-09-03] MEDS: levETIRAcetam in NS 500 MG in Premix Bag 1 BAG IVPB SCH ×2 (08:34→21:24)
[2020-09-03] MEDS: Pantoprazole 40 MG GRANULES PACKET PER TUBE SCH (08:35)
[2020-09-03] MEDS: Potassium Bicarbonate/Cit Ac 20 MEQ TAB PO SCH ×2 (08:35→21:26)
[2020-09-03] MEDS ORDERED: hydrALAZINE 20 MG/ML VIAL SLOW IVP PRN (09:28)
[2020-09-03] MEDS ORDERED: Metoprolol Tartrate 25 MG TAB PO SCH (09:30)
[2020-09-03] MEDS: Losartan 25 MG TAB PO SCH ×2 (21:25→21:29)
[2020-09-03] MEDS: Acetaminophen 650 MG/20.3 ML UDCUP PER TUBE PRN (21:27)
[2020-09-03] MEDS: Transdermal Patch Removal TOP SCH (22:50)
[2020-09-04] MEDS ORDERED: Lorazepam 2 MG/ML VIAL SLOW IVP SCH (01:15)
[2020-09-04] MEDS: Potassium Bicarbonate/Cit Ac 20 MEQ TAB PO SCH ×2 (07:57→22:54)
[2020-09-04] MEDS: Allopurinol 300 MG TAB PO SCH (07:58)
[2020-09-04] MEDS: Metoprolol Tartrate 25 MG TAB PO SCH ×2 (07:59→22:57)
[2020-09-04] MEDS: Pantoprazole 40 MG GRANULES PACKET PER TUBE SCH (07:59)
[2020-09-04] MEDS: Enoxaparin Sodium 40 MG/0.4 ML SYRINGE SC SCH (07:59)
[2020-09-04] MEDS: Amlodipine 10 MG TAB PO SCH (07:59)
[2020-09-04] MEDS: Dextrose 5 %-0.45 % NaCl 1,000 ML IV SCH (09:00)
[2020-09-04] MEDS: levETIRAcetam in NS 500 MG in Premix Bag 1 BAG IVPB SCH (09:01)
[2020-09-04] MEDS ORDERED: Nystatin Powder 15 GM BOT TOP PRN (09:03)
[2020-09-04] MEDS: Acetaminophen 650 MG/20.3 ML UDCUP PER TUBE PRN (09:23)
[2020-09-04 12:03] VITALS: BMI 29.2
[2020-09-04] MEDS ORDERED: Haloperidol Lactate 5 MG/ML VIAL SLOW IVP PRN (16:07)
[2020-09-04] MEDS: Haloperidol Lactate 5 MG/ML VIAL IM PRN ×2 (16:34→17:28)
[2020-09-04] MEDS: Losartan 25 MG TAB PO SCH (22:57)
[2020-09-05] MEDS: Allopurinol 300 MG TAB PO SCH (08:17)
[2020-09-05] MEDS: Metoprolol Tartrate 25 MG TAB PO SCH ×2 (08:17→21:15)
[2020-09-05] MEDS: Pantoprazole 40 MG GRANULES PACKET PER TUBE SCH (08:17)
[2020-09-05] MEDS: Enoxaparin Sodium 40 MG/0.4 ML SYRINGE SC SCH (08:17)
[2020-09-05] MEDS: Potassium Bicarbonate/Cit Ac 20 MEQ TAB PO SCH (08:17)
[2020-09-05] MEDS: Amlodipine 10 MG TAB PO SCH (08:18)
[2020-09-05] MEDS: Haloperidol Lactate 5 MG/ML VIAL IM PRN (13:29)
[2020-09-05] MEDS: levETIRAcetam 500 MG TAB PO SCH (21:15)
[2020-09-05] MEDS: Losartan 25 MG TAB PO SCH (21:15)
[2020-09-06 08:53] LABS: #Basophils 0.1 thou/uL (0.0-0.2); #Eosinphils 0.2 thou/uL (0.0-0.7); #Lymphocytes 2.1 thou/uL (1.20-3.40); #Monocytes 0.8 thou/uL (0.11-0.59); #Neutrophils 6.1 thou/uL (1.40-6.50); %Basophils 1.2 % (0.0-1.0); %Eosinophils 2.5 % (0.0-10.0); %Lymphocytes 22.6 % (21.0-51.0); %Monocytes 8.5 % (0.0-10.0); %Neutrophils 65.3 % (42.0-75.0); Hemoglobin 14.1 g/dL (14.0-18.0); Mean Corpuscular Hemoglobin 32.3 pg (27.0-31.0); Mean Platelet Volume 7.1 fL (7.4-10.4); Platelet Count 537 thou/uL (130-400); RBC Distribution Width 12.3 % (11.5-14.5); Red Blood Cell (RBC) Count 4.35 mill/uL (4.70-6.10); White Blood Cell (WBC) Count 9.3 thou/uL (4.8-10.8)
[2020-09-06 09:08] LABS: Anion Gap 16 mmol/L (10-20); BUN (Urea Nitrogen) 36 mg/dL (8.4-25.7); Calc. Creatinine Clearance 57 mL/min (70-130); Calcium 9.8 mg/dL (7.8-10.44); Carbon Dioxide 23 mmol/L (23-31); Chloride 105 mmol/L (98-107); Glucose 123 mg/dL (83-110); Potassium 4.1 mmol/L (3.5-5.1); Sodium 140 mmol/L (136-145)
[2020-09-06] MEDS: levETIRAcetam 500 MG TAB PO SCH ×2 (10:08→21:01)
[2020-09-06] MEDS: Amlodipine 10 MG TAB PO SCH (10:09)
[2020-09-06] MEDS: Enoxaparin Sodium 40 MG/0.4 ML SYRINGE SC SCH (10:09)
[2020-09-06] MEDS: Allopurinol 300 MG TAB PO SCH (10:09)
[2020-09-06] MEDS: Metoprolol Tartrate 25 MG TAB PO SCH ×2 (10:09→21:02)
[2020-09-06] MEDS: Losartan 25 MG TAB PO SCH (21:01)
[2020-09-07 05:19] LABS: #Basophils 0.1 thou/uL (0.0-0.2); #Eosinphils 0.3 thou/uL (0.0-0.7); #Lymphocytes 2.8 thou/uL (1.20-3.40); #Monocytes 0.8 thou/uL (0.11-0.59); #Neutrophils 4.7 thou/uL (1.40-6.50); %Basophils 1.3 % (0.0-1.0); %Lymphocytes 31.9 % (21.0-51.0); %Monocytes 9.7 % (0.0-10.0); %Neutrophils 54.1 % (42.0-75.0); Hemoglobin 13.3 g/dL (14.0-18.0); Mean Corpuscular HGB CONC 33.9 g/dL (32.0-36.0); Mean Corpuscular Hemoglobin 32.2 pg (27.0-31.0); Mean Corpuscular Volume 95.1 fL (78.0-98.0); Mean Platelet Volume 7.2 fL (7.4-10.4); Platelet Count 541 thou/uL (130-400); RBC Distribution Width 12.3 % (11.5-14.5); Red Blood Cell (RBC) Count 4.14 mill/uL (4.70-6.10); White Blood Cell (WBC) Count 8.7 thou/uL (4.8-10.8)
[2020-09-07 05:42] LABS: Anion Gap 15 mmol/L (10-20); BUN (Urea Nitrogen) 34 mg/dL (8.4-25.7); Calc. Creatinine Clearance 55 mL/min (70-130); Calcium 9.9 mg/dL (7.8-10.44); Carbon Dioxide 25 mmol/L (23-31); Chloride 102 mmol/L (98-107); Glucose 117 mg/dL (83-110); Potassium 3.7 mmol/L (3.5-5.1); Sodium 138 mmol/L (136-145)
[2020-09-07] MEDS: Enoxaparin Sodium 40 MG/0.4 ML SYRINGE SC SCH (08:23)
[2020-09-07] MEDS: Allopurinol 300 MG TAB PO SCH (08:23)
[2020-09-07] MEDS: Metoprolol Tartrate 25 MG TAB PO SCH ×2 (08:24→20:38)
[2020-09-07] MEDS: Amlodipine 10 MG TAB PO SCH (08:24)
[2020-09-07] MEDS: levETIRAcetam 500 MG TAB PO SCH ×2 (08:24→20:38)
[2020-09-07] MEDS: Losartan 25 MG TAB PO SCH (20:38)
[2020-09-08 05:39] LABS: #Basophils 0.1 thou/uL (0.0-0.2); #Eosinphils 0.3 thou/uL (0.0-0.7); #Lymphocytes 2.6 thou/uL (1.20-3.40); #Monocytes 0.6 thou/uL (0.11-0.59); #Neutrophils 3.9 thou/uL (1.40-6.50); %Basophils 1.5 % (0.0-1.0); %Eosinophils 3.7 % (0.0-10.0); %Monocytes 7.8 % (0.0-10.0); Hemoglobin 13.1 g/dL (14.0-18.0); Mean Corpuscular HGB CONC 33.4 g/dL (32.0-36.0); Mean Corpuscular Hemoglobin 31.6 pg (27.0-31.0); Mean Corpuscular Volume 94.7 fL (78.0-98.0); Mean Platelet Volume 7.4 fL (7.4-10.4); Platelet Count 505 thou/uL (130-400); RBC Distribution Width 12.2 % (11.5-14.5); Red Blood Cell (RBC) Count 4.14 mill/uL (4.70-6.10); White Blood Cell (WBC) Count 7.4 thou/uL (4.8-10.8)
[2020-09-08 05:51] LABS: Anion Gap 14 mmol/L (10-20); BUN (Urea Nitrogen) 32 mg/dL (8.4-25.7); Calc. Creatinine Clearance 61 mL/min (70-130); Calcium 9.8 mg/dL (7.8-10.44); Carbon Dioxide 23 mmol/L (23-31); Chloride 104 mmol/L (98-107); Glucose 113 mg/dL (83-110); Potassium 3.9 mmol/L (3.5-5.1); Sodium 137 mmol/L (136-145)
[2020-09-08] MEDS: Enoxaparin Sodium 40 MG/0.4 ML SYRINGE SC SCH (08:19)
[2020-09-08] MEDS: levETIRAcetam 500 MG TAB PO SCH (08:19)
[2020-09-08] MEDS: Allopurinol 300 MG TAB PO SCH (08:19)
[2020-09-08] MEDS: Amlodipine 10 MG TAB PO SCH (08:20)
[2020-09-08] MEDS: Metoprolol Tartrate 25 MG TAB PO SCH (08:20)
[2020-09-08] MEDS ORDERED: Melatonin 3 MG TAB PO PRN (09:30)
[2020-09-08 16:00] VITALS: BP 155/75; TEMP 98
== END 2020-09-08 20:05 | DRG 870 ==
LOC: ERS 20:09 → CCU 22:00 → ERHOLD 22:06 → CCU 08-21 13:08 → IMCU/EMU 08-30 14:56 → 2SW 09-01 22:23
PROVIDERS: ADMIT Student in an Organized Health Care Education/Training Program; ATTEND Internal Medicine
PROC: 5A1955Z Respiratory Ventilation, Greater than 96 Consecutive Hours (ICD-10-PCS; principal; 2020-08-20)
PROC: 009U3ZX Drainage of Spinal Canal, Percutaneous Approach, Diagnostic (ICD-10-PCS; 2020-08-20)
PROC: 0BP1XDZ Removal of Intraluminal Device from Trachea, External Approach (ICD-10-PCS; 2020-08-29)
DX: A41.9 Sepsis, unspecified organism (principal); J96.01 Acute respiratory failure with hypoxia; G93.41 Metabolic encephalopathy; J69.0 Pneumonitis due to inhalation of food and vomit; E87.1 Hypo-osmolality and hyponatremia; E87.2 Acidosis; N17.9 Acute kidney failure, unspecified; A86 Unspecified viral encephalitis; Z20.822 Contact with and (suspected) exposure to COVID-19; M1A.9XX0 Chronic gout, unspecified, without tophus (tophi); I10 Essential (primary) hypertension; R65.20 Severe sepsis without septic shock; R59.0 Localized enlarged lymph nodes; G93.89 Other specified disorders of brain; E16.2 Hypoglycemia, unspecified; Z78.1 Physical restraint status; Z98.890 Other specified postprocedural states; Z79.899 Other long term (current) drug therapy; I48.91 Unspecified atrial fibrillation; R00.1 Bradycardia, unspecified; E87.6 Hypokalemia
CPT/HCPCS: 36415; 36416; 36600; 62270; 70553; 71045; 80048; 80053; 82805; 82945; 83605; 84157; 84439; 84443; 84481; 85025; 85060; 86140; 86769; 87070; 87205; 87529; 87635; 89051; 93005; 93010; 93306; 94002; 94003; 95712; 95819; 95957; 96365; 96366; 96368; 96376; A9579; C9113; J0133; J0282; J0290; J0360; J0696; J1630; J1650; J1940; J1953; J2060; J2270; J2543; J2704; J3010; J3370; J3411; J3480; J3486; J3490; J7030; J7042; J7050; J7070; U0003; U0005